=== PATIENT | male | born 1995 | race Caucasian/White ===

== ENCOUNTER 2022-01-11 10:58 | Emergency (ER) | payer BC, OTHER ==
[2022-01-11 11:23] VITALS: TEMP 97.7
--- NOTE | 2022-01-11 11:39 | ED ---
Head Injury HPI - General Chief complaint: Head Injury Stated complaint: fall, hit head Time Seen by Provider: 01/11/22 11:25 Source: patient, RN notes reviewed Mode of arrival: ambulatory Limitations: no limitations - History of Present Illness Initial comments: Patient is a 26 year old male presenting to the ER with a chief complaint of head injury. Patient was skateboarding down a hill and hit a bump causing him to fall backwards hitting his head. Denies LOC. Patient admits to an episode of blackout/blurry vision. After a couple of minutes. the patient was able to drive himself home. At home, he took Tylenol to help with his headache. He admits to feeling nausea when laying down after taking the Tylenol but that has since subsided. Denies vomiting or unsteady gait. Patient contacted his PCP who instructed him to come to the ER for evaluation. Patient is not on any regular mediations at this time. - Related Data Home Medications Medication Instructions Recorded Confirmed Paliperidone IM Pt Own [Invega 117 mg IM QMONTH 11/14/15 01/01/16 Sustenna Pt Own] Previous Rx's Medication Instructions Recorded Doxepin [SINEquan] 10 mg PO HS #30 cap 01/05/16 Escitalopram [Lexapro] 20 mg PO HS #30 tab 01/05/16 Ibuprofen [Motrin] 600 mg PO Q8H PRN #30 tab 01/05/16 LORazepam [Ativan] 1 mg PO BID #20 tab 01/05/16 Nicotine 14Mg/24Hr Patch [Habitrol] 1 patch TRANSDERM DAILY #30 patch 01/05/16 clonazePAM [KlonoPIN] 0.5 mg PO TID PRN #30 tab 01/05/16 hydrOXYzine pamoate [Vistaril] 25 mg PO DAILY PRN #14 cap 01/05/16 lamoTRIgine [LaMICtal] 25 mg PO BID #30 tab 01/05/16 traZODone HCL 100 mg PO HS #60 tablet 01/05/16 Allergies/Adverse reactions: Allergies Allergy/AdvReac Type Severity Reaction Status Date / Time No Known Allergies Allergy Verified 01/01/16 16:35 Review of Systems ROS Statement: Those systems with pertinent positive or pertinent negative responses have been documented in the HPI. ROS Other: All systems not noted in ROS Statement are negative. Past Medical History Past Medical History: No Reported History Additional Past Medical History / Comment(s): kidney stones History of Any Multi-Drug Resistant Organisms: None Reported Additional Past Surgical History / Comment(s): lithotripsy Past Psychological History: Schizophrenia Smoking Status: Current some day smoker Past Alcohol Use History: Rare Past Drug Use History: Marijuana General Exam Limitations: no limitations General appearance: alert, in no apparent distress Head exam: Present: other (hematoma on right scalp ) Eye exam: Present: normal appearance, PERRL, EOMI. Absent: scleral icterus, conjunctival injection, periorbital swelling Pupils: Present: normal accommodation ENT exam: Present: normal exam, mucous membranes moist Neck exam: Present: normal inspection. Absent: tenderness, meningismus, lymphadenopathy Respiratory exam: Present: normal lung sounds bilaterally. Absent: respiratory distress, wheezes, rales, rhonchi, stridor Cardiovascular Exam: Present: regular rate, normal rhythm, normal heart sounds. Absent: systolic murmur, diastolic murmur, rubs, gallop, clicks GI/Abdominal exam: Present: soft, normal bowel sounds. Absent: distended, tenderness, guarding, rebound, rigid Extremities exam: Present: normal inspection, full ROM, normal capillary refill. Absent: tenderness, pedal edema, joint swelling, calf tenderness Back exam: Present: normal inspection, full ROM. Absent: tenderness Neurological exam: Present: alert, oriented X3, CN II-XII intact Psychiatric exam: Present: normal affect, normal mood Skin exam: Present: warm, dry, intact, normal color. Absent: rash Course Vital Signs 01/11/22 11:19 Temperature 97.7 F Pulse Rate 52 L Respiratory 20 Rate Blood Pressure 114/71 O2 Sat by Pulse 99 Oximetry Medical Decision Making - Medical Decision Making 26-year-old presented for head trauma. CT is obtained given symptoms, injury. I did read the CT and read by radiologist which shows no acute processes. Disposition Clinical Impression: Head contusion Disposition: HOME SELF-CARE Condition: Stable Instructions (If sedation given, give patient instructions): Head Injury (ED) Additional Instructions: Please return to the Emergency Department if symptoms worsen or any other concerns. Is patient prescribed a controlled substance at d/c from ED?: No Referrals: Sima Terrazas MD [Primary Care Provider] - 1-2 days Time of Disposition: 11:50
--- NOTE | 2022-01-11 11:55 | CT ---
EXAMINATION TYPE: CT brain wo con DATE OF EXAM: 01/11/2022 COMPARISON: None. HISTORY: fall injury with headache. CT DLP: 1114.4 mGycm. Automated Exposure Control for Dose Reduction was Utilized. TECHNIQUE: CT scan of the head is performed without contrast. FINDINGS: There is no acute intracranial hemorrhage, mass effect, or midline shift identified. The ventricles and sulci are within normal limits in size. Banks-white matter differentiation is maintain ed. The calvarium is intact. The globes are intact and the visualized sinuses are clear. Cerebellar t onsils extend to the level of foramen magnum. IMPRESSION: No acute intracranial hemorrhage or midline shift is seen.
[2022-01-11 12:17] VITALS: BP 122/74; PULSE 64; RESP 18
== END 2022-01-11 12:17 | disposition home or self-care (01) ==
LOC: EC 10:58
DX: S00.93XA Contusion of unspecified part of head, initial encounter (principal); F17.200 Nicotine dependence, unspecified, uncomplicated; F12.90 Cannabis use, unspecified, uncomplicated; V00.131A Fall from skateboard, initial encounter
CPT/HCPCS: 70450; 99283